=== PATIENT | male | born 1980 | race Native Hawaiian/Other Pacific Islander ===

== ENCOUNTER 2016-11-03 18:52 | Emergency (ER) | payer OTHER ==
[~2016-11-03] VITALS: Ht 170.2 cm; Wt 80.7 kg
[~2016-11-03 18:52] MED LIST: AMOXICILLIN250 M2 PO; LORA10TA3 PO; MOTRIN IB200 MG PO; OMEP20CA PO
[2016-11-03 20:32] VITALS: BP 122/86; TEMP 98.3
== END 2016-11-03 20:34 | disposition home or self-care (01) ==
LOC: ED 18:52
DX: R09.89 Other specified symptoms and signs involving the circulatory and respiratory systems (principal); T17.228A Food in pharynx causing other injury, initial encounter; K29.70 Gastritis, unspecified, without bleeding
CPT/HCPCS: 99283